=== PATIENT | male | born 1950 | race Caucasian/White ===

== ENCOUNTER 2017-07-28 06:55 | Day surgery (SDC) | payer MEDICARE, MEDICAID ==
[~2017-07-28] VITALS: Ht 180.3 cm; Wt 93.0 kg
[~2017-07-28 06:55] MED LIST: ASPIRIN EC325 MG PO; ASPIRIN EC81 MG PO; BACLOFEN10 MG PO; CALCITRIOL0.25 MCG PO; CALCIUM + VITA1 EAC1 PO; CARVEDILOL12.5 MG PO; CYCLOBENZAPRINE10 MG PO; DICLOFENAC SODI75 MG PO; DILAUDID4 MG PO; HYDROCHLOROTHIA25 MG PO; LEVOTHYROXINE137 MCG PO; LEVOTHYROXINE150 MCG PO; LIPITOR10 MG PO; MELOXICAM15 MG PO; METFORMIN HCL500 MG PO; NITROGLYCERIN0.4 MG SL; NORCO 5-325 TA1 EACH PO; POTASSIUM CHLO20 ME1 PO; SIMVASTATIN10 MG PO; TERAZOSIN HCL2 MG PO
--- NOTE | 2017-07-28 11:47 | NUR ---
07/28/17 1147 ArvinBlue ramey SAT 99%, O2 DECREASED TO 6L VIA MASK.
[2017-07-28] MEDS ORDERED: MAPAP325 MG PO (12:12)
[2017-07-28] MEDS ORDERED: HYDROCODON-ACE1 EA10 PO (12:13)
--- NOTE | 2017-07-28 13:20 | NUR ---
PT BACK TO ROOM. REPORT RECV. PT DENIES NEED FOR PAIN MED OR NAUSEA MED AT THIS TIME. PILLOW PLACED UNDER KNEES FOR COMFORT. MOUTH SWABS GIVEN. PT NOT WANTING TO TRY PO YET. FAMILY IN ROOM.
--- NOTE | 2017-07-28 13:57 | NUR ---
APPLESAUCE AND ICED WATER GIVEN. PT DENIES DESIRE FOR PRN @ THIS TIME. SPOUSE REMAINS @ BS.
--- NOTE | 2017-07-28 14:45 | NUR ---
PATIENT ASSISTED OOB AND TO BATHROOM WITH HELP FROM RN AND SON. GAIT SLIGHTLY UNSTEADY. UNABLE TO VOID. PATIENT ASSISTED BACK TO BED. PATIENT STATES HE DOES NOT FEEL LIKE HIS BLADDER IS TOO FULL NOR DOES HE FEEL UNCOMFORTABLE. WANTS TO WAIT MORE TIME AND TRY TO VOID LATER. NO OTHER REQUESTS AT THIS TIME. FAMILY AT BEDSIDE. SCDs REPLACED. CALL LIGHT WITHIN REACH.
--- NOTE | 2017-07-28 15:19 | NUR ---
PT BLADDER SCANNED AND IS FOUND TO HAVE 249 ML IN BLADDER @ THIS TIME. PT CONTINUES TO DENY URGE TO VOID.
--- NOTE | 2017-07-28 15:38 | NUR ---
PT UP TO BR W/RN STANDBY. PT AMBULATES W/LIMP (BASELINE) AND IS UNABLE TO VOID. IV CONTINUES TO RUN @ TKO AND SCDS ON AND RUNNING. SPOUSE REMAINS @ BS.
--- NOTE | 2017-07-28 16:25 | NUR ---
PT UP TO BR W/RN STANDBY. PT AMBULATES WELL W/LIMP AND IS UNABLE TO VOID. PT BLADDER SCANNED AND IS FOUND TO HAVE 235 ML IN BLADDER. PHONE CALL TO DR YODER. MESSAGE LEFT WITH HIS SEALANT MIXER. 45 ML SEROUS DRAINAGE EMPTIED FROM SALLY DRAIN. DRAIN EDUCATION DONE W/PATIENT AND HIS SPOUSE. BOTH VERBALIZE UNDERSTANDING.
--- NOTE | 2017-07-28 16:47 | NUR ---
PHONE CALL FROM MD AND NEW ORDER RECEIVED. PT STRAIGHT CATHETERIZED USING STERILE TECHNIQUE AND 500 ML DARK YELLOW URINE OBTAINED. MORE ICED WATER GIVEN AND PATIENT UNDERSTANDS PLAN OF CARE. PT TOLERATES CATHETERIZATION FAIR. PT REPORTS DECREASED URGE TO VOID AFTER CATHETERIZATION.
--- NOTE | 2017-07-28 18:03 | NUR ---
PT TRANSFERRED TO [facility] AND VERBAL REPORT IS GIVEN TO MING BOYD. PT SITTING @ BS EATING HIS SANDWICH AND CHIPS. SPOUSE REMAINS @ BS.
--- NOTE | 2017-07-28 18:14 | NUR ---
PT TO FLOOR WITH DAY SURGERY MING MIRANDA. PT EATING DINNER AND DENIES NAUSEA. PT AT BEDSIDE AND ASKED FOR A SNACK. GAVE BOTH TOMATO SOUP. PT DENIES NEEDING PAIN MEDS.
--- NOTE | 2017-07-28 18:40 | NUR ---
PT TRIED TO URINATE AGAIN TO NO AVAIL. PT DENIES NEED FOR PAIN MEDS. RATES 3\10. FINISHED FOOD AND SOUP. STATES THAT HE IS STARTING TO FEEL LIKE HE NEEDS TO PEE AGAIN. IN BED RELAXING.
--- NOTE | 2017-07-28 19:15 | NUR ---
RECEIVED REPORT FROM RN. PATIENT DENIES NEEDS AT THIS TIME.
--- NOTE | 2017-07-28 19:26 | NUR ---
TALKED TO DR YODER. GAVE VERBAL ORDER FOR ALMAGUER IF NEEDED AND TAKE OUT IN THE AM.
--- NOTE | 2017-07-28 19:47 | NUR ---
PATIENT CALLED COMPLAIN OF CANT VOID AND STATED THE DOCTOR TOLD ME THAT THEY WILL PUT A CATHETER ON ME, I TOLD HIM I WILL FIND AND NOTIFY HIS NURSE. NURSE NOTIFIED.
--- NOTE | 2017-07-28 20:30 | NUR ---
INSERTED ALMAGUER CATHETER DUE TO PATIENT RETAINING URINE. PATIENT TOLERATED PROCEDURE WELL, ASSISTED BY MING MAC. ALMAGUER DRAINED 450 ML URINE. PATIENT IS NOW RESTING COMFORTABLY IN BED, CALL LIGHT WITHIN REACH.
--- NOTE | 2017-07-28 20:47 | NUR ---
UPDATED DR. YODER THAT PATIENT HAD ALMAGUER PLACED WITH 450ML URINE OUTPUT. HE STATED TO LEAVE ALMAGUER IN UNTIL MORNING. DR. YODER ALSO ORDERED A ONE TIME DOSE OF FLOMAX PO, O.4 MG. NO OTHER ORDERS AT THIS TIME.
--- NOTE | 2017-07-29 00:15 | NUR ---
PATIENT RESTING COMFORTABLY IN BED. BREATHING IS EVEN AND UNLABORED, FLACC SCORE OF 0. CALL LIGHT WITHIN REACH.
--- NOTE | 2017-07-29 01:28 | NUR ---
PATIENT RESTING COMFORTABLY IN BED. BREATHING IS EVEN AND UNLABORED. CALL LIGHT WITHIN [facility].
--- NOTE | 2017-07-29 03:27 | NUR ---
PATIENT REPORTS 2/10 PAIN IN PENIS AFTER ALMAGUER PLACEMENT, AND REPORTS 4/10 PAIN AT SURGICAL SITE. PRN NORCO GIVEN PER EMAR. SHIFT ASSESSMENT DONE. PATIENT DENIES OTHER NEEDS AT THIS TIME. CALL LIGHT WITHIN REACH.
--- NOTE | 2017-07-29 05:17 | NUR ---
PATIENT'S NIGHT WAS UNEVENTFUL. HE HAS BEEN RESTING COMFORTABLY IN BED THROUGHOUT SHIFT. VSS, PAIN HAS BEEN WELL CONTROLLED WITH PRN NORCO AND MOTRIN. NO ACUTE CHANGES FROM BEGINNING OF SHIFT ASSESSMENT.
--- NOTE | 2017-07-29 07:37 | NUR ---
PT AWAKE AND UP TO THE RESTROOM AFTER HAVING ALMAGUER REMOVED AT 0630. WILL ORDER BREAKFAST SHORTLY.
--- NOTE | 2017-07-29 09:15 | NUR ---
PT STILL UNABLE TO INITIATE STREAM. STATES HE HAD THIS PROBLEM A FEW YEARS AGO WITH A HIP REPLACEMENT. ASKED FOR PAIN MEDICATION.
--- NOTE | 2017-07-29 09:20 | NUR ---
PATIENT UP IN RESTROOM TRYING TO VOID AT THIS TIME. PATIENT IS REFUSING A BATH. NO OTHER COMPLAINTS OR REQUESTS AT THIS TIME.
--- NOTE | 2017-07-29 10:00 | NUR ---
PT GOWN AND BEDDING WET. CHANGED AND ENCOURAGED TO URINATE IN URINAL. WILL GET DISCHARGE READY.
--- NOTE | 2017-07-29 10:11 | NUR ---
PT CALLED BECAUSE HIS GOWN WAS WET AND SO WAS THE DRAW SHEET UNDERNEATH HIM. I ASKED HIM IF IT WAS URINE AND HE SAID HE DIDNT KNOW. I BELIEVE IT WAS URINE HIS ONLY DRINK IN THE ROOM WAS WATER AND IT WAS STILL COMPLETELY FULL TO THE TOP
--- NOTE | 2017-07-29 10:36 | NUR ---
PATIENT IS SITTING UP ON THE SIDE OF THE BED DRINKING COFFEE. VITALS TAKEN. NO OTHER REQUESTS OR COMPLAINTS AT THIS TIME.
--- NOTE | 2017-07-29 12:10 | NUR ---
MING PENNINGTON ASKED IF I WOULD WALK WITH PT IN HALLS. HAD A GOOD VISIT WITH PT, HE SEEMED TO ENJOY BEING UP. MENTIONED HE IS HAVING TROUBLE URINATING. 2 LAPS AROUND WAS ENOUGH, GOT HIM BACK INTO BED, WILL CONTINUE TO FOLLOW
--- NOTE | 2017-07-29 12:48 | NUR ---
BLADDER SCANNED PT FOR 0 ML. PT STATES HE DOES NOT FEEL THE URGE AFTER GOING 50ML A FEW MINUTES AGO. USED THE ED'S NEW BLADDER SCANNER AND STILL NOTHING.
--- NOTE | 2017-07-29 13:05 | NUR ---
PATIENT UP AMBULATING IN THE BODN AT THIS TIME INDEPENDENTLY. NO COMPLAINTS AT THIS TIME.
[2017-07-29] MEDS ORDERED: FLOMAX0.4 MG PO (14:13)
--- NOTE | 2017-07-29 14:22 | NUR ---
PT DC HOME WITH LEG BAG TRIPP. PT VERBALIZED UNDERSTANDING OF HOW TO CARE FOR IT AND THE DRESSING FROM SURGERY. INSTRUCTED TO SHOWER OF TOMORROW (THURSDAY) HERE TO TAKE HOME. TAKEN TO CAR IN WHEELCHAIR. DC'D ON NEW FLOMAX PRESCRIPTION WHICH WAS SENT OT PHARM. VS STABLE.
--- NOTE | 2017-07-29 14:39 | NUR ---
PATIENTS VITALS AND I&O'S TAKEN AND CHARTED AT THIS TIME. SUKHWINDER-PHARMACIST IN ROOM GOING OVER DISCHARGE MEDICATIONS WITH PATIENT.
--- NOTE | 2017-07-29 14:45 | NUR ---
PATIENTS SALINE LOCK WAS TAKEN OUT BY THIS CYCLE COUNTER PER HIS NURSE, DEB.
[2017-07-31] MEDS ORDERED: ZOFRAN ODT4 MG PO (01:56)
--- NOTE | 2017-08-14 07:48 | OR ---
[facility] [address], [place] [address] Signed DATE OF PROCEDURE: 07/28/17 PREOPERATIVE DIAGNOSIS: Bilateral giant inguinal hernias. POSTOPERATIVE DIAGNOSIS Incarcerated left inguinal hernia, sliding type, with incarcerated colon without strangulation. PROCEDURE Repair incarcerated non-strangulated sliding left inguinal hernia, prolonged, complicated, difficult. Implantation of Prolene mesh (underlay technique). SURGEON: Al Yoder MD. ANESTHESIA General endotracheal (Al Villegas CRNA) and local 10 mL of 0.25% Marcaine with Epinephrine. DRAIN: A 7-mm Rojelio. INDICATION This 67-year-old white man is a patient Dr. Latham and was initially referred for consideration of colonoscopy as he has had a 20-pound weight loss over the past year without clear cause as well as diarrhea and sometimes rectal bleeding. He was noted to have a markedly enlarged scrotum, which was suggestive of hernia, though possibility of large hydroceles could not be excluded clinically. He underwent a CT scan of the abdomen, which showed considerable amount of sigmoid colon within the left hemiscrotum as well as small bowel in the right hemiscrotum. Obviously, he had 2 giant bilateral inguinal hernias. Rather than proceed with colonoscopy with much of the sigmoid in the left hemiscrotum, repair of the left inguinal hernia is appropriate as well as subsequent repair of the right side ultimately allowing for additional evaluation to include colonoscopy He is admitted to undergo a left inguinal hernia repair understanding the risks of bleeding, infection, recurrence, and so on. FINDINGS Indeed, a considerable amount of sigmoid colon was noted in the left hemiscrotum. The defect was about 3-4 cm, but it was extraordinarily difficult to allow for safe reduction of the hernia, ultimately was accomplished. It was a sliding-type hernia, Electronically Signed By: AL YODER MD 08/14/17 0748 PATIENT NAME: DELIA DOOLEY OPERATIVE REPORT DATE OF : 52 PHYSICIAN: AL YODER MD REPORT #: [id number] REPORT IS CONFIDENTIAL AND NOT TO BE RELEASED WITHOUT AUTHORIZATION [facility] [address], [place] [address] Signed which required essentially relocation of the sigmoid and the lateral wall of the sigmoid colon to be rolled back into the peritoneal cavity. This did not represent a simple herniation of colon independent of the hernia sac at all but indeed was a true sliding hernia. Reconstruction of the floor including implantation of Prolene mesh in an underlay technique. A drain was placed given the extent of dissection. The operation was particularly prolonged, complicate, and difficult on the basis of these anatomic factors but was accomplished safely. The testicle appeared to be normal and viable at conclusion of the procedure. DESCRIPTION OF PROCEDURE The patient was brought to the operating room, given a general endotracheal anesthetic. Preoperative antibiotic Ancef was given. Sequential compression device stockings used and heparin subcutaneously administered. Photographs were taken. The lower abdomen and pelvis were clipped and prepared with a Chlorhexidine solution and draped sterilely. An incision was made over the large bulge in the left groin in the line of skin tension, dissection carried through the thick subcutaneous tissue. Ultimately identified was attenuated fibers of the external oblique, which were very thinned out. These were divided revealing the underlying herniated fatty tissue including a hernia sac. The bulky tissue was ultimately from the remaining subcutaneous tissue and the distal spermatic cord identified and from the soft tissue and encircled with a [place] drain. The non-reduced hernia was about the size of a softball, but more in an oblong configuration. The cremasteric muscle fibers were then divided using electrocautery revealing the underlying internal spermatic fascia and ultimately the hernia sac could be more fully from the cord structures. There was no reduction of the incarcerated viscus, which was known to be the sigmoid colon based on the CT scan. With various maneuvers, the defect allowing for herniation could be identified. It was about 3 fingerbreadths in size, extended eventually to all of the floor. The hernia sac was opened and this revealed sigmoid colon. As expected, there was no palpable neoplasm of the sigmoid or anything of that sort. It was clear that this represented a sliding hernia with the inferior lateral wall of the hernia sac contiguous with the sigmoid colon. Some fascial release was undertaken laterally and then a bit more ultimately allowing for invagination of the herniated sigmoid into the peritoneal and properitoneal space. By this point, the anatomy could be more clearly identified. The inguinal ligament was identified more clearly and the tendon of the transversus abdominis define more fully as well. Electronically Signed By: AL YODER MD 08/14/17 0748 PATIENT NAME: MEL DOOLEYMakayla THOMPSON OPERATIVE REPORT DATE OF : 52 PHYSICIAN: AL YODER MD REPORT #: [id number] REPORT IS CONFIDENTIAL AND NOT TO BE RELEASED WITHOUT AUTHORIZATION [address] [address] Signed A segment of Prolene mesh was cut to an elliptical configuration and secured in an underlay technique with interrupted 2-0 Prolene sutures. Multiple such sutures were placed with broad overlap of the fascial edges. Tails of the graft were carried around the cord remnants laterally. Care was taken to make sure the aperture was not excessively tight, but was certainly snugged to avoid recurrent herniation. The extent of dissection and difficulty of the mobilization and reduction of the hernia was quite considerable. Through a separate stab incision, a 7-mm Rojelio drain was placed as was some Edwina powder within the soft tissue of the left inguinal area. The Marivel's layer was reapproximated with interrupted 2-0 Vicryl and skin closed with running subcuticular 3-0 Vicryl. Steri-Strips were applied as was a Mepilex silver sponge dressing and an OpSite. The operation was prolonged, complicated, and difficult lasting 4 times longer than usual. MD RAMIRO Galvez/Jefferson /[id number] cc: Solo Latham MD Electronically Signed By: AL YODER MD 08/14/17 0748 PATIENT NAME: DELIA DOOLEY OPERATIVE REPORT DATE OF : 52 PHYSICIAN: AL YODER MD REPORT #: [id number] REPORT IS CONFIDENTIAL AND NOT TO BE RELEASED WITHOUT AUTHORIZATION
== END 2017-07-29 15:00 | disposition home or self-care (01) ==
LOC: MS 06:55 → DS 06:55 → MS 18:13 → DS 07-29 15:00
PROVIDERS: Surgery
PROC: 0YU60JZ Supplement Left Inguinal Region with Synthetic Substitute, Open Approach (ICD-10-PCS; principal; 2017-07-28 08:30)
DX: K40.30 Unilateral inguinal hernia, with obstruction, without gangrene, not specified as recurrent (principal); E66.3 Overweight; E03.9 Hypothyroidism, unspecified; I10 Essential (primary) hypertension; E78.00 Pure hypercholesterolemia, unspecified; E11.9 Type 2 diabetes mellitus without complications; I25.10 Atherosclerotic heart disease of native coronary artery without angina pectoris; M19.90 Unspecified osteoarthritis, unspecified site; Z88.5 Allergy status to narcotic agent; Z90.49 Acquired absence of other specified parts of digestive tract; Z96.642 Presence of left artificial hip joint; Z98.890 Other specified postprocedural states; Z96.643 Presence of artificial hip joint, bilateral; Z68.28 Body mass index [BMI] 28.0-28.9, adult
CPT/HCPCS: 00830; 51701; 51702; 51798; C1781; J0330; J0690; J1100; J1644; J1885; J2250; J2405; J2704; J2710; J2765; J3010; J7120

== ENCOUNTER 2017-09-15 06:55 | Day surgery (SDC) | payer MEDICARE, MEDICAID ==
[~2017-09-15] VITALS: Ht 180.3 cm; Wt 93.0 kg
[~2017-09-15 06:55] MED LIST changes: +FLOMAX0.4 MG PO; +HYDROCODON-ACE1 EA10 PO; +MAPAP325 MG PO; +ZOFRAN ODT4 MG PO
--- NOTE | 2017-09-15 11:06 | NUR ---
09/15/17 1106 Tana Alcazar 1059-PATIENT ARRIVED TO PACU ON 6L MASK O2 SAT 100% ORAL AIRWAY IN PLACE AND REMOVED. PATIENT REACTIVE. SR.
[2017-09-15] MEDS ORDERED: OXYCODON-ACETA1 EAC2 PO (11:11)
--- NOTE | 2017-09-15 11:54 | NUR ---
ICED WATER AND APPLESAUCE GIVEN. SPOUSE @ BS. CALL LIGHT W/IN REACH. PT EATING APPLESAUCE W/ASSIST OF AND TOLERATING THAT WELL.
--- NOTE | 2017-09-15 12:51 | NUR ---
PATIENT'S CALL LIGHT ALARMING. WHEN THIS RN ENTERS THE ROOM, PATIENT REPORTS "I THREW UP IN THE GARBAGE CAN". PT REPORTS DECREASE IN NAUSEA SINCE EMESIS AND THEN SHORTLY REPORTS "I'M GOING TO THROW UP AGAIN". EMESIS BAG GIVEN AND PRN GIVEN. SPOUSE REMAINS @ BS.
--- NOTE | 2017-09-15 14:23 | NUR ---
PT UP TO BR W/RN ASSIST. PT AMBULATES W/SIGNIFICANT LIMP AND REPORTS HAVING "A CANE AT HOME". PT UNABLE TO VOID. PT BACK IN BED AND BLADDER SCANNED FOR 143 ML. IV RECONNECTED AND RUNNING @ TKO. SANDWICH ORDERED FROM [employer].
--- NOTE | 2017-09-15 15:43 | NUR ---
LE 1315: PATIENT'S LUNCH ARRIVES. PATIENT SITTING UP IN BED EATING. MORE ICED WATER GIVEN X 2.
--- NOTE | 2017-09-15 17:30 | NUR ---
PT UNABLE TO VOID AFTER 500 ML LR BOLUS. PT BLADDER SCANNED AND IS FOUND TO HAVE 562 ML IN BLADDER. ALMAGUER INSERTED USING STERILE TECHNIQUE AND LIDOCAINE LUBRICATING JELLY AND PT TOLERATES THAT WELL. 800 DARK YELLOW URINE EMPTIED FROM BLADDER AND OVERNIGHT BAG DISCARDED AND LEG BAG PLACED PER PT REQ AND OKAY WITH DR. YODER.
--- NOTE | 2017-09-15 17:55 | OR ---
[facility] [address] [place], [place] [address] Signed DATE OF OPERATION: 09/15/2017 SURGEON: Al Yoder MD PREOPERATIVE DIAGNOSIS: Giant right scrotal inguinal hernia (small bowel). POSTOPERATIVE DIAGNOSIS: Incarcerated sliding indirect right inguinal hernia. PROCEDURE: Repair of incarcerated sliding right indirect inguinal hernia with excision of hernia sac and implantation of Prolene mesh (underlay technique). SURGEON: Al Yoder MD ANESTHESIA: General endotracheal (Parveen Glover, BUNCH BREAKER MACHINE OPERATOR) and local 20 mL of 0.25 Marcaine with epinephrine. INDICATION: This is a 67-year-old white man was sent to me originally for a colonoscopy by his primary physician, Dr. Latham. He asked me to examine his scrotum as he had "testicular swelling." He was found to have giant scrotum and CT scan performed showed essentially all of the sigmoid colon in the left hemiscrotum and much of his small bowel in the right hemiscrotum. He has undergone left inguinal hernia repair with reduction of the sigmoid hernia and now presents for the repair of the right side. He understands well the risks of bleeding, infection, recurrence, and other unforeseen complications related to repair of the hernia. Once this is done, consideration will be made for the original request, which is colonoscopy. FINDINGS: A very large right indirect hernia was noted. The hernia sac was at least 6 cm in size. Still, it was an indirect hernia and had sliding component of small bowel as the posterior wall of the hernia sac. Complete reduction was ultimately accomplished, excision of the redundant hernia sac and ligation of it in a mattress configuration as well as implantation of Prolene mesh in an underlay technique. At this point, the scrotum can be well-examined and both testicles are symmetric, normal and without neoplasm. Electronically Signed By: AL YODER MD 09/15/17 1755 PATIENT NAME: DELIA DOOLEY OPERATIVE REPORT DATE OF : 52 PHYSICIAN: AL YODER MD REPORT #: [id number] REPORT IS CONFIDENTIAL AND NOT TO BE RELEASED WITHOUT AUTHORIZATION [facility] [address] [facility] [place], [place] [address] Signed PROCEDURE IN DETAIL: The patient was brought to the operating room, given a general endotracheal anesthetic. Preoperative antibiotic Ancef was given. Sequential compression device stockings were used and heparin subcutaneously administered. The lower abdomen was clipped and prepared with chlorhexidine solution and draped sterilely. An incision was made cephalad to the pubic tubercle (at least where it was estimated to be and symmetric with the contralateral incision) and dissection carried through the subcutaneous tissue with electrocautery. A marked attenuation of the external oblique fascia was noted with protrusion of the hernia. External oblique fascia was bluntly from the underlying protruding hernia and ultimately bluntly from the floor of the canal and encircled with a Ajay drain. With various manipulations, the cord structure could be ultimately from the hernia sac itself. The hernia sac was thick, large, and containing small bowel. Ultimately, the hernia could be reduced fully. The hernia sac was dissected free from the cord structures, which seem to envelop the hernia sac. Once the hernia sac was freed completely from the cord structures, it was elevated and the floor of the canal could be identified and although there was attenuated fibers of the fascia transversalis, this represented an indirect hernia. Hernia sac was incised and examined internally. In the lateral inferior wall adherent small bowel to the hernia sac was noted constituting a sliding-type hernia. This was freed with sharp and electrocautery dissection ultimately freeing the bowel entirely and allowing it to return to the peritoneal cavity. The hernia sac now freed up, was examined and found to be about 6 cm in length. This was secured with running 2-0 silk suture in a horizontal mattress configuration in each direction and redundant hernia sac amputated and passed for pathology. An Allis clamp was applied to the tendon of the transversus abdominis. The attenuated fibers of the fascia transversalis in the region of the pubic tubercle were incised with electrocautery and the properitoneal fat bluntly . This was extended to the internal ring. A segment of Prolene mesh was cut to an appropriate elliptical configuration and secured in an underlay technique with interrupted 2-0 Prolene sutures. A defect was cut in the graft to accommodate the cord structures. The tails of the graft were secured laterally without encumbrance to any regional nerves. A 20 mL of 0.25% Marcaine with epinephrine was injected locally. The bulky redundant cord structures and so forth were allowed to return to natural position. There was no external oblique to really approximate. Through a separate stab incision laterally, a 7 mm flat Rojelio drain was placed and insinuated into the inguinal canal extending to the proximal hemiscrotum on the right. Marivel's layer was reapproximated with interrupted 2-0 Vicryl and skin closed with running subcuticular 3-0 Vicryl. Steri-Strips were applied. The drain was secured to the skin with nylon suture. A Mepilex silver sponge dressing was applied as was an OpSite. The patient was ultimately extubated and transferred to recovery room in good condition having suffered no complication. Sponge, needle, and instrument counts reported as correct x3. Electronically Signed By: AL YODER MD 09/15/17 4359 PATIENT NAME: DELIA DOOLEY OPERATIVE REPORT DATE OF : 52 PHYSICIAN: AL YODER MD REPORT #: [id number] REPORT IS CONFIDENTIAL AND NOT TO BE RELEASED WITHOUT AUTHORIZATION [facility] [address] [place] [address] [place], [place] [address] Signed The operation was prolonged, complicated, and difficult on the basis of the giant nature of this complicated large hernia. It lasted at least 4 times longer than usual. MD RAMIRO Galvez/ARIELLEL /[id number] cc: Solo Latham DO Electronically Signed By: AL YODER MD 09/15/17 1755 PATIENT NAME: DELIA DOOLEY OPERATIVE REPORT DATE OF : 52 PHYSICIAN: AL YODER MD REPORT #: [id number] REPORT IS CONFIDENTIAL AND NOT TO BE RELEASED WITHOUT AUTHORIZATION
== END 2017-09-15 18:00 | disposition home or self-care (01) ==
LOC: DS 06:55
PROVIDERS: Surgery
PROC: 0YU50JZ Supplement Right Inguinal Region with Synthetic Substitute, Open Approach (ICD-10-PCS; principal; 2017-09-15 08:30)
DX: K40.30 Unilateral inguinal hernia, with obstruction, without gangrene, not specified as recurrent (principal); I25.10 Atherosclerotic heart disease of native coronary artery without angina pectoris; E11.9 Type 2 diabetes mellitus without complications; E78.00 Pure hypercholesterolemia, unspecified; I10 Essential (primary) hypertension; E03.9 Hypothyroidism, unspecified; N28.9 Disorder of kidney and ureter, unspecified; M19.90 Unspecified osteoarthritis, unspecified site; Z85.820 Personal history of malignant melanoma of skin; Z88.5 Allergy status to narcotic agent; Z88.8 Allergy status to other drugs, medicaments and biological substances; Z96.641 Presence of right artificial hip joint; Z90.49 Acquired absence of other specified parts of digestive tract; Z96.643 Presence of artificial hip joint, bilateral; Z98.890 Other specified postprocedural states; Z79.899 Other long term (current) drug therapy
CPT/HCPCS: 00830; 51701; C1781; J0690; J1644; J1885; J2405; J2550; J2704; J2710; J3010; J7120

== ENCOUNTER 2017-10-16 09:48 | Day surgery (SDC) | payer MEDICARE, MEDICAID ==
[~2017-10-16] VITALS: Ht 180.3 cm; Wt 95.2 kg
[~2017-10-16 09:48] MED LIST changes: +OXYCODON-ACETA1 EAC2 PO
--- NOTE | 2017-10-16 12:34 | NUR ---
10/16/17 1234 Lainey Bowie 1225 RESP EVEN AND UNLABORED. PT ALSLEEP. 1234 O2 SAT 100%, O2 REMOVED.
--- NOTE | 2017-10-16 19:54 | OR ---
[facility] [address], [place] [address] Signed DATE OF OPERATION: 10/16/2017 SURGEON: Al Yoder MD PREOPERATIVE DIAGNOSIS: Diarrhea. POSTOPERATIVE DIAGNOSIS: Normal-appearing colon except for scattered diverticula. PROCEDURE: Total colonoscopy to cecum with biopsy of the cecum and rectum. SURGEON: Al Yoder MD ANESTHESIA: Intravenous sedation propofol infusion, Parveen Glover CRNA. INDICATION: This 67-year-old white man is a patient of Dr. Solo Latham and was referred to me last summer for colonoscopy for diarrheal issues. He was noted to have a massively enlarged scrotum and found to have on CT scan of the left hemiscrotum filled with sigmoid colon and the right side filled with small bowel. He has undergone repair of left inguinal hernia and subsequently the right inguinal hernia. He is now here for colon evaluation as had been intended initially. He understands the risks of bleeding, infection, and perforation related to colonoscopy and wished to proceed. His issue has been some diarrhea, but no associated rectal bleeding. FINDINGS: The prep was adequate. Complete colonoscopy was undertaken of the cecum. He had diverticular change of the sigmoid and scattered diverticula elsewhere. There was no sign of polyps or actual colitis. He did have some internal hemorrhoidal changes. Biopsies were taken of the cecum in the rectum to assess for occult colitis. DESCRIPTION OF PROCEDURE: The patient was assessed and found to be ASA class 3 at minimum with numerous comorbidities. On that basis, propofol infusional sedation was deemed appropriate based on hospital protocol. Electronically Signed By: AL YODER MD 10/16/171953 PATIENT NAME: DELIA DOOLEY OPERATIVE REPORT DATE OF : 52 PHYSICIAN: AL YODER MD REPORT #: [id number] REPORT IS CONFIDENTIAL AND NOT TO BE RELEASED WITHOUT AUTHORIZATION [facility] [address], [place] [address] Signed In the lateral decubitus position in the endoscopy suite, he was given intravenous sedation with full cardiopulmonary monitoring by the direct support specialist using propofol infusional technique. Digital rectal examination was performed and found to be normal. An Olympus video colonoscope was passed in the rectum and manipulated throughout the colon. The prep was not perfect by any means, but adequate for purpose at hand. The scope was ultimately advanced to the cecum. Biopsies were taken of the cecum, although the mucosa appeared reasonably normal. Scope was withdrawn from that point. Examination throughout undertaken showed diverticular changes, scattered throughout and more dominantly in the sigmoid. The rectum itself on retroflexed view had internal hemorrhoidal changes. Biopsies were taken of the rectum to assess for occult colitis as well. The scope was removed. The patient was taken to recovery room in good condition. He had no evidence of polyps or cancer. CONCLUSION DIAGNOSIS: Diarrhea of uncertain etiology. RECOMMEND: Citrucel 1 tablespoon each day. I would like to see him back in the office in 4 weeks or so. Review his pathology reports and assess his situation at that point. MD RAMIRO Galvez/GIOVANY /[id number] cc: Solo Latham DO Electronically Signed By: AL YODER MD 10/16/17 1954 PATIENT NAME: DELIA DOOLEY OPERATIVE REPORT DATE OF : 52 PHYSICIAN: AL YODER MD REPORT #: [id number] REPORT IS CONFIDENTIAL AND NOT TO BE RELEASED WITHOUT AUTHORIZATION
== END 2017-10-16 13:18 | disposition home or self-care (01) ==
LOC: DS 09:48 → OPS 09:48
PROVIDERS: Surgery
PROC: 0DBP8ZX Excision of Rectum, Via Natural or Artificial Opening Endoscopic, Diagnostic (ICD-10-PCS; principal; 2017-10-16 11:15)
DX: K57.30 Diverticulosis of large intestine without perforation or abscess without bleeding (principal); K64.8 Other hemorrhoids; E89.0 Postprocedural hypothyroidism; M19.90 Unspecified osteoarthritis, unspecified site; I25.10 Atherosclerotic heart disease of native coronary artery without angina pectoris; E11.9 Type 2 diabetes mellitus without complications; E78.00 Pure hypercholesterolemia, unspecified; I10 Essential (primary) hypertension; N28.9 Disorder of kidney and ureter, unspecified; Z87.891 Personal history of nicotine dependence; Z88.5 Allergy status to narcotic agent; Z90.49 Acquired absence of other specified parts of digestive tract; Z96.643 Presence of artificial hip joint, bilateral; Z88.8 Allergy status to other drugs, medicaments and biological substances; Z85.820 Personal history of malignant melanoma of skin; Z98.890 Other specified postprocedural states; Z79.899 Other long term (current) drug therapy
CPT/HCPCS: 88305; 99156; 99157; J0694; J2704

== ENCOUNTER 2017-12-10 12:52 | Day surgery (SDC) | payer MEDICARE, MEDICAID ==
[~2017-12-10] VITALS: Ht 180.3 cm; Wt 93.0 kg
[2017-12-10] MEDS ORDERED: OMEPRAZOLE20 MG PO (13:22)
--- NOTE | 2017-12-10 14:33 | NUR ---
12/10/17 1433 Shauna Coto 1429 PATIENT ARRIVES TO PACU ASLEEP, OPENS EYES TO VERBAL STIMULI, THEN BACK TO SLEEP. RESP EVEN AND UNLABORED, NC AT 4 LITERS, DECREASED TO 2LITERS AFTER ARRIVAL.
--- NOTE | 2017-12-17 14:12 | OR ---
[facility] [address], [place] [address] Signed DATE OF OPERATION: 12/10/2017 SURGEON: Al Yoder MD PREOPERATIVE DIAGNOSES: 1. Cervical dysphagia. 2. History of thyroidectomy including substernal thyroidectomy for goiter. POSTOPERATIVE DIAGNOSES: 1. Normal-appearing esophagus. 2. Antral gastritis, bile within stomach. 3. Duodenitis with nodularity. 4. Gastric polyps. PROCEDURE: Esophagogastroduodenoscopy with biopsies. ANESTHESIA: Intravenous sedation, fentanyl 100 mcg, Versed 3 mg. INDICATION: This 67-year-old white man is a patient of Dr. Solo Wilson. He is well known to me from the recent past, having undergone bilateral inguinal hernia repair (staged) as well as colonoscopy. He has recently complained of cervical dysphagia. He has a distant history of complex thyroid resection including substernal goiter resection, completion thyroidectomy, and other issues. He does not have symptoms suggestive of reflux per se, but does have some cervical dysphagia. He is admitted to undergo upper endoscopy to better characterize the problem, understand the risks of bleeding, infection, and perforation. FINDINGS: There is no lesion of the esophagus or hypopharynx to account for cervical dysphagia in any way. He did not have evidence of esophagitis particularly. There is no Soliz epithelium. The flap valve was good. The stomach did have antral gastritis and there was a fair amount of bilious fluid within the stomach suggestive of possible bile reflux gastritis. Pylorus was normal. Duodenum had chronic inflammatory changes including nodularity. Biopsies were obtained. CLOtest was negative 15 minutes postprocedure. DESCRIPTION OF PROCEDURE: The patient was brought to the endoscopy suite and placed in lateral decubitus position Electronically Signed By: AL YODER MD 12/17/17 1412 PATIENT NAME: DELIA DOOLEY OPERATIVE REPORT DATE OF : 52 REPORT #: [id number] PHYSICIAN: AL YODER MD PCP: SOLO WILSON DO REPORT IS CONFIDENTIAL AND NOT TO BE RELEASED WITHOUT AUTHORIZATION [facility] [address], [place] [address] Signed after undergoing topical Hurricaine spray, hypopharyngeal anesthesia. After satisfactory intravenous sedation, a bite block was placed. An Olympus video upper endoscope was passed in the hypopharynx. Vocal cords were visualized and found to be normal. Scope was advanced to the esophagus, which was essentially normal throughout its length. The scope was advanced to the stomach, which was insufflated with air. There was a fair amount of bilious fluid within the stomach, no gastroparesis, probably simply some bile reflux. Rugal folds appeared normal, though there were some polyps interposed between them. The antrum itself had chronic inflammatory change and erythematous streaking. Pylorus was normal. Scope was passed through into the duodenum. Immediately noted were nodular changes of the bulbar duodenum and chronic inflammatory changes in the remaining duodenum. Biopsies were obtained in both areas. The scope was withdrawn to the stomach and biopsies taken of the antrum for both RUI and pathologic testing. Retroflexed view showed a good flap valve. The scope manipulated allowed for visualization of some polyps of the body of the stomach. Skoog Operator one was excised. CLOtest biopsies were obtained as well. The scope was withdrawn to the distal esophagus and biopsies taken there and in the midesophagus to assess for eosinophilic esophagitis. The scope was further withdrawn and the hypopharyngeal areas once again were found to be normal. The patient was taken to recovery room in good condition. CONCLUDING DIAGNOSES: 1. Gastritis of the antrum, uncertain if related to reflux gastritis from bile. 2. Normal flap valve and no evidence of esophagitis. 3. Duodenal inflammatory change and nodularity. PLAN: Expectant management for now. We will review his pathology reports. If his symptoms persist, he will let me know. Consideration will be made for followup in the future depending on his symptom course. MD RAMIRO Galvez/ARIELLEL /[id number] cc: Solo Wilson DO Electronically Signed By: AL YODER MD 12/17/17 1412 PATIENT NAME: DELIA DOOLEY OPERATIVE REPORT DATE OF : 52 REPORT #: [id number] PHYSICIAN: AL YODER MD PCP: SOLO WILSON DO REPORT IS CONFIDENTIAL AND NOT TO BE RELEASED WITHOUT AUTHORIZATION [address] [place] [address] Signed Copies: SOLO WILSON DO ~ Electronically Signed By: AL YODER MD 12/17/17 1412 PATIENT NAME: DELIA DOOLEY OPERATIVE REPORT DATE OF : 52 REPORT #: [id number] PHYSICIAN: AL YODER MD PCP: SOLO WILSON DO REPORT IS CONFIDENTIAL AND NOT TO BE RELEASED WITHOUT AUTHORIZATION
== END 2017-12-10 15:05 | disposition home or self-care (01) ==
LOC: OPS 12:52 → DS 12:52 → OPS 14:00 → DS 14:00 → OPS 15:05
PROVIDERS: Surgery
PROC: 0DB78ZX Excision of Stomach, Pylorus, Via Natural or Artificial Opening Endoscopic, Diagnostic (ICD-10-PCS; 2017-12-10)
PROC: 0DB28ZX Excision of Middle Esophagus, Via Natural or Artificial Opening Endoscopic, Diagnostic (ICD-10-PCS; 2017-12-10)
PROC: 0DB38ZX Excision of Lower Esophagus, Via Natural or Artificial Opening Endoscopic, Diagnostic (ICD-10-PCS; 2017-12-10)
PROC: 0DB98ZX Excision of Duodenum, Via Natural or Artificial Opening Endoscopic, Diagnostic (ICD-10-PCS; principal; 2017-12-10 14:00)
DX: K29.50 Unspecified chronic gastritis without bleeding (principal); K20.9 Esophagitis, unspecified; K22.70 Barrett's esophagus without dysplasia; K31.7 Polyp of stomach and duodenum; M19.90 Unspecified osteoarthritis, unspecified site; E89.0 Postprocedural hypothyroidism; I25.10 Atherosclerotic heart disease of native coronary artery without angina pectoris; E11.9 Type 2 diabetes mellitus without complications; E78.00 Pure hypercholesterolemia, unspecified; I10 Essential (primary) hypertension; R41.3 Other amnesia; E66.3 Overweight; K52.9 Noninfective gastroenteritis and colitis, unspecified; Z68.28 Body mass index [BMI] 28.0-28.9, adult; Z88.5 Allergy status to narcotic agent; Z88.8 Allergy status to other drugs, medicaments and biological substances; Z96.641 Presence of right artificial hip joint; Z98.890 Other specified postprocedural states; Z90.49 Acquired absence of other specified parts of digestive tract; Z85.828 Personal history of other malignant neoplasm of skin
CPT/HCPCS: 88305; 88313; 88342; 99153; G0500; J0690; J2250; J3010; J7120

== ENCOUNTER 2019-02-28 05:45 | Day surgery (SDC) | payer MEDICARE, OTHER ==
[~2019-02-28] VITALS: Ht 180.3 cm; Wt 91.2 kg
[~2019-02-28 05:45] MED LIST changes: +OMEPRAZOLE20 MG PO
--- NOTE | 2019-02-28 08:23 | NUR ---
PT IN BED, NOT TOO ALERT, VERY SLEEPY. PT HAD HARD TIME STAYING AWAKE, GAVE A BLESSING, WILL FOLLOW NEEDED
--- NOTE | 2019-02-28 08:42 | NUR ---
02/28/19 0842 Parisa Emerson 0814 PT ARRIVED IN PACU SLEEPY WITH NO C/O'S. BLOOD SUGAR [address] AT BEDSIDE TALKING TO PT. C/O URGE FOR BOWEL MOVEMENT. 0835 UP TO BSC WITH ONE PERSON ASSIST.
--- NOTE | 2019-02-28 09:18 | NUR ---
PT IS BACK TO DS FROM PACU. HE IS REQUESTING TO GET UP AND BE ABMULATORY TO HELP HIM VOID. HE REPORTS THE URGE TO VOID, BUT HAS BEEN UNABLE TO DO SO. ONCE THE PT IS ABLE TO SUFFICIENTLY VOID HE IS ABLE TO GO HOME.
--- NOTE | 2019-02-28 09:29 | NUR ---
PT AMBULATING HALLWAY WITH THIS RN AND STATES HE WAS ABLE TO VOID IN THE BATHROOM BUT DID NOT USE URINAL. PT BACK TO ROOM AND SITS ON COMMODE AND IS UNBALE TO VOID AGAIN. PT PROVIDED WITH ICE WATER. CALL LIGHT WITHIN REACH.
--- NOTE | 2019-02-28 09:43 | NUR ---
pt bladder scanned for 131 ml in bladder. no change from bladder scan in pacu. pt enc to drink water.
--- NOTE | 2019-02-28 10:00 | NUR ---
PT ABLE TO VOID 75 ML CLEAR YELLOW URINE WITHOUT DIFFICULTY AND STATES NO FEELING OF BLADDER FULLNESS. BLADDER SCANNED FOR 25 ML RESIDUAL VOLUME. PT ABLE TO DC.
--- NOTE | 2019-02-28 10:26 | NUR ---
PT DRESSES SELF WITH NO PROBLEMS. DC INSTRUCTIONS GIVEN TO PT AND SPOUSE, ALL QUESTIONS ADDRESSED. PT DC'S VIA WC FROM [facility] RM 4 WITH SPOUSE HOME.
== END 2019-02-28 10:20 | disposition home or self-care (01) ==
LOC: OPS 05:45 → DS 05:45 → EDSTATUS 06:45 → DS 06:45 → OPS 06:45 → US 07:00 → OPS 10:20
PROVIDERS: Urology
PROC: BV49ZZZ Ultrasonography of Prostate and Seminal Vesicles (ICD-10-PCS; 2019-02-28)
PROC: 0VB03ZX Excision of Prostate, Percutaneous Approach, Diagnostic (ICD-10-PCS; principal; 2019-02-28 06:45)
DX: C61 Malignant neoplasm of prostate (principal); I12.9 Hypertensive chronic kidney disease with stage 1 through stage 4 chronic kidney disease, or unspecified chronic kidney disease; E11.22 Type 2 diabetes mellitus with diabetic chronic kidney disease; N18.9 Chronic kidney disease, unspecified; I25.10 Atherosclerotic heart disease of native coronary artery without angina pectoris; E78.00 Pure hypercholesterolemia, unspecified; E03.9 Hypothyroidism, unspecified; K21.9 Gastro-esophageal reflux disease without esophagitis; Z88.5 Allergy status to narcotic agent; Z88.6 Allergy status to analgesic agent; Z88.8 Allergy status to other drugs, medicaments and biological substances; Z79.899 Other long term (current) drug therapy; Z87.891 Personal history of nicotine dependence
CPT/HCPCS: 76942; J0696; J2704; J7120

== ENCOUNTER 2020-10-26 17:38 | Emergency (ER) | payer MEDICARE, MEDICAID ==
[~2020-10-26] VITALS: Ht 180.3 cm; Wt 91.2 kg
== END 2020-10-26 21:15 | disposition home or self-care (01) ==
LOC: ED 17:38
DX: R42 Dizziness and giddiness (principal); R51.9 Headache, unspecified; R19.7 Diarrhea, unspecified; Z20.822 Contact with and (suspected) exposure to COVID-19; I10 Essential (primary) hypertension; E78.5 Hyperlipidemia, unspecified; E11.9 Type 2 diabetes mellitus without complications; E87.6 Hypokalemia; Z88.5 Allergy status to narcotic agent; Z88.8 Allergy status to other drugs, medicaments and biological substances; Z79.899 Other long term (current) drug therapy; Z79.84 Long term (current) use of oral hypoglycemic drugs
CPT/HCPCS: 80053; 81001; 83735; 85025; 99284; C9803; U0003